=== PATIENT | male | born 1965 | race Caucasian/White ===

== ENCOUNTER 2017-10-02 07:11 | Day surgery (SDC) | payer MEDICAID ==
[~2017-10-02 07:11] MED LIST: Cefuroxime 10 MG/ML SYRINGE EYELF SCH; Lidocaine 1% PF 2 ML SDV INJECT SCH; Pilocarpine 4% Ophth Soln 15 ML Bot EYELF SCH
[2017-10-02] MEDS: Polymyxin B/Trimethoprim 10 ML Bottle EYELF SCH ×3 (07:24→09:44)
[2017-10-02] MEDS: Brimonidine 0.2% Ophth Soln 5 ML Bottle EYELF SCH ×3 (07:29→09:44)
[2017-10-02] MEDS: Phenylephrine 2.5% Ophth Soln 2 ML Bot EYELF SCH ×5 (07:34→09:10)
--- NOTE | 2017-10-02 07:37 | PCM.PREANE ---
Preanesthetic Assessment - Procedure Proposed Procedure: Left Eye Cataract Extraction - Anesthesia/Transfusion/Family Hx Anesthesia History: Prior Anesthesia Without Reaction (patient stated during dental procedure required more anesthesia) Family History of Anesthesia Reaction: No Transfusion History: No Prior Transfusion(s) Intubation History: Unknown - Review of Systems General: No Symptoms Pulmonary: Other (asthma, no inhaler use ) Cardiovascular: No Symptoms, Other (dextrocardia per patient) Gastrointestinal: No Symptoms Neurological: No Symptoms Other: Reports: None, Thyroid Problems (historicially with medication, no issues currently per patient ) - Physical Assessment NPO Status Date: 10/01/17 NPO Status Time: 22:30 ASA Class: 2 Mental Status: Alert & Oriented x3 Airway Class: Mallampati = 1 Dentition: Reports: Missing Tooth/Teeth (mutliple missing, patient states all are eventually going to be pulled ), Caries (poor dentition ) ROM/Head Extension: Full Lungs: Clear to Auscultation, Normal Respiratory Effort Cardiovascular: Regular Rate, Regular Rhythm (s1-s2 stronger on right side ) - Allergies Allergies/Adverse Reactions: Allergies Allergy/AdvReac Type Severity Reaction Status Date / Time NSAIDS (Non-Steroidal Allergy Burning Verified 10/01/17 12:57 Anti-Inflamma Penicillins Allergy Anaphylactic Verified 10/01/17 12:57 Shock mycins Allergy Anaphylactic Uncoded 10/01/17 12:57 Shock - Blood Blood Available: No - Acknowledgements Anesthesia Type Planned: MAC Pt an Appropriate Candidate for the Planned Anesthesia: Yes Alternatives and Risks of Anesthesia Discussed w Pt/Guardian: Yes Pt/Guardian Understands and Agrees with Anesthesia Plan: Yes PreAnesthesia Questionnaire HEENT History: Reports: Impaired Vision, Other (See Below) Other HEENT History: decayed teeth Cardiovascular History: Reports: Other (See Below) Other Cardiovascular History: denies diagnosis of syncope, states he has had synopal episodes and vertigo feeling in the past. Respiratory History: Reports: Asthma Gastrointestinal History: Reports: GERD Musculoskeletal History: Reports: Osteoarthritis Other Musculoskeletal History: right knee surgery Neurological History: Reports: Concussion, Seizure Psychiatric History: Reports: Addiction, Anxiety, PTSD - Past Surgical History HEENT Surgical History: Reports: Detached Retina, Eye Surgery, Tonsillectomy Musculoskeletal Surgical History: Reports: Arthroscopic Knee - SUBSTANCE USE Smoking Status *Q: Current Every Day Smoker Tobacco Use Within Last Twelve Months: Cigarettes Second Hand Smoke Exposure: No Recreational Drug Use History: Yes Recreational Drug Type: Reports: Marijuana/Hashish - HOME MEDS Home Medications: Home Meds . [No Known Home Meds] 02/20/16 [History] - CURRENT (IN HOUSE) MEDS Current Meds: Current Medications Brimonidine Tartrate (Alphagan 0.2% Ophth Soln) 0 ml EYELF ASDIRECTED DAVID Stop: 10/02/17 18:00 Last Admin: 10/02/17 07:29 Dose: 1 drop Cefuroxime Sodium (Zinacef) 0 mg EYELF ASDIRECTED DAVID Stop: 10/02/17 18:00 Lidocaine HCl (Xylocaine-Mpf 1%) 10 ml INJECT ASDIRECTED DAVID Stop: 10/02/17 18:00 Phenylephrine HCl (Eran-Synephrine 2.5% Ophth Soln) 0 ml EYELF ASDIRECTED DAVID Stop: 10/02/17 18:00 Pilocarpine HCl (Pilocar 4% Ophth Soln) 0 ml EYELF ASDIRECTED DAVID Stop: 10/02/17 18:00 Polymyxin/Trimethoprim Sulfate (Polytrim Ophth Soln) 0 ml EYELF ASDIRECTED DAVID Stop: 10/02/17 18:00 Last Admin: 10/02/17 07:24 Dose: 1 drop Tetracaine HCl (Tetracaine 0.5% Steri-Unit Yari) 0 ml EYELF ASDIRECTED DAVID Stop: 10/02/17 18:00 Tropicamide (Mydriacyl 1% Ophth Soln) 0 ml EYELF ASDIRECTED DAVID Stop: 10/02/17 18:00
[2017-10-02] MEDS ORDERED: Lidocaine 1%/Sod Bicarbonate in NS 8.4% 1 ML Syringe IDERM PRN (07:45)
[2017-10-02] MEDS ORDERED: Lactated Ringers 1,000 ML IV SCH (07:45)
[2017-10-02] MEDS ORDERED: Sodium Chloride 0.9% 10 ML Syringe FLUSH PRN (07:45)
[2017-10-02] MEDS: Tetracaine HCl/PF 0.5% 4 ML Bottle EYELF SCH ×2 (08:21→09:23)
[2017-10-02] MEDS ORDERED: Midazolam 1 MG/ML 2 ML SDV ONE ×3 (09:18→09:50)
--- NOTE | 2017-10-02 09:52 | PCM48HPAN ---
Post Anesthesia Note - EVALUATION WITHIN 48HRS OF ANESTHETIC Vital Signs in Normal Range: Yes Patient Participated in Evaluation: Yes Respiratory Function Stable: Yes Airway Patent: Yes Cardiovascular Function Stable: Yes Hydration Status Stable: Yes Pain Control Satisfactory: Yes Nausea and Vomiting Control Satisfactory: Yes Mental Status Recovered: Yes Pulse Rate: 62 SaO2: 99 Resp Rate: 20 Temperature: 36.6 C Blood Pressure: 109/79 Pulse Rate: 62
[2017-10-02 10:12] VITALS: BP 115/90
== END 2017-10-02 10:26 | disposition home or self-care (01) ==
LOC: JD.SDS 07:11
PROVIDERS: ATTEND Ophthalmology
DX: H25.89 Other age-related cataract (principal); H25.811 Combined forms of age-related cataract, right eye; H31.092 Other chorioretinal scars, left eye; M19.90 Unspecified osteoarthritis, unspecified site; E07.9 Disorder of thyroid, unspecified; J45.909 Unspecified asthma, uncomplicated; K21.9 Gastro-esophageal reflux disease without esophagitis; F17.210 Nicotine dependence, cigarettes, uncomplicated; Z90.49 Acquired absence of other specified parts of digestive tract; Z98.890 Other specified postprocedural states; Z79.899 Other long term (current) drug therapy; Z88.8 Allergy status to other drugs, medicaments and biological substances; Z88.0 Allergy status to penicillin
CPT/HCPCS: 66984; C1780; J2250; J7120; A9270-GY

== ENCOUNTER 2017-10-27 18:54 | Emergency (ER) | payer MEDICAID ==
[2017-10-27 19:16] VITALS: BP 120/81
--- NOTE | 2017-10-27 20:38 | EDM.PDOC ---
ED HPI GENERAL MEDICAL PROBLEM - General Chief Complaint: Headache Stated Complaint: HEADACHE/BLURRED VISION Time Seen by Provider: 10/27/17 20:14 Source of Information: Reports: Patient History Limitations: Reports: No Limitations - History of Present Illness INITIAL COMMENTS - FREE TEXT/NARRATIVE: Patient is a 52-year-old male who presents to the ED complaining of generalized headache that is sharp in nature with waxing waning in intensity. Patient states it has been present for the past 24 hours. He's been utilizing Tylenol approximately 2000 mg every 6 hours with no relief. States normally headaches are brought on by stress. He does have a history of migraines. States this headache is different. States he took his dog outside to use the bathroom. Upon going back inside his residence he felt like a seizure was coming come on and went to the couch. Patient laid down on the and had a full grand mal seizure lasting for only a few seconds. Patient did not bite his tongue nor was there any incontinence to urine and stool. He is supposed to be on anti-seizure medications. Has chosen not to be on these meds. He does utilize marijuana on a infrequent basis. In addition has a history of cataract surgery to the left eye recently. He has not followed up with the people manager and notes he still has some blurred vision to the left eye. He will not followup with opthomalogist since this was a traumatic experience. Denies any recent trauma to his head, fever, ear discomfort, nausea/ vomiting, chest pain, sob, abdominal pain, numbness or tingling to extremities, and or focal neurological deficits. Patient does smoke a half pack per day. Denies alcohol use. He is on no medications and has no additional past medical history. Headache Pain Score (Numeric/FACES): 9 - Related Data Allergies Allergy/AdvReac Type Severity Reaction Status Date / Time NSAIDS (Non-Steroidal Allergy Burning Verified 10/27/17 19:16 Anti-Inflamma Penicillins Allergy Anaphylactic Verified 10/27/17 19:16 Shock mycins Allergy Anaphylactic Uncoded 10/27/17 19:16 Shock Home Meds: Home Meds . [No Known Home Meds] 02/20/16 [History] Past Medical History HEENT History: Reports: Impaired Vision, Other (See Below) Other HEENT History: decayed teeth Cardiovascular History: Reports: Other (See Below) Other Cardiovascular History: denies diagnosis of syncope, states he has had synopal episodes and vertigo feeling in the past. Respiratory History: Reports: Asthma Gastrointestinal History: Reports: GERD Musculoskeletal History: Reports: Osteoarthritis Other Musculoskeletal History: right knee surgery Neurological History: Reports: Concussion, Seizure Psychiatric History: Reports: Addiction, Anxiety, PTSD - Past Surgical History HEENT Surgical History: Reports: Detached Retina, Eye Surgery, Tonsillectomy Musculoskeletal Surgical History: Reports: Arthroscopic Knee Social & Family History - Family History Cardiac: Reports: [place] Oncologic: Reports: Lung - Tobacco Use Smoking Status *Q: Current Every Day Smoker Years of Tobacco use: 30 Packs/Tins Daily: 0 Used Tobacco, but Quit: No Second Hand Smoke Exposure: No - Caffeine Use Caffeine Use: Reports: Coffee Other Caffeine Use: unknown - Recreational Drug Use Recreational Drug Use: No Drug Use in Last 12 Months: Yes Recreational Drug Type: Reports: Marijuana/Hashish Recreational Drug Use Frequency: Rarely - Living Situation & Occupation Living situation: Reports: with Significant Other, with Family Occupation: Employed ED ROS GENERAL - Review of Systems Review Of Systems: ROS reveals no pertinent complaints other than HPI. - Physical Exam Exam: See Below Exam Limited By: No Limitations General Appearance: Alert, WD/WN, No Apparent Distress Eye Exam: Bilateral Eye: EOMI, Nystagmus (none noted. ), Other (Both pupils are reactive to light. Left pupil 2 mm and the right is approximately 5. Patient recently had cataract surgery on the left and has blurred vision. He has not followed up with the people manager.) Ears: Hearing Grossly Normal Nose: Normal Inspection Throat/Mouth: Normal Voice, No Airway Compromise. No: Normal Teeth, Evidence of Tongue Biting Head Exam: Atraumatic, Normocephalic. No: Scalp Lacerations, Scalp Swelling, Scalp Abrasions, Scalp Ecchymosis, Scalp Hematoma, Scalp Tenderness, Facial Abrasions, Facial Ecchymosis, Facial Lacerations, Facial Swelling, Facial Tenderness, Sinus Tenderness Neck: Normal Inspection, Supple, Non-Tender, Full Range of Motion Respiratory/Chest: No Respiratory Distress, Lungs Clear, Normal Breath Sounds, No Accessory Muscle Use, Chest Non-Tender Cardiovascular: Normal Peripheral Pulses, Regular Rate, Rhythm, No Murmur GI/Abdominal: Normal Bowel Sounds, Soft, Non-Tender, No Organomegaly, No Distention Neuro Exam (Abbreviated): Alert, Oriented, CN II-XII Intact, Normal Cognition, Normal Gait, No Motor/Sensory Deficits, Other (No facial droop, slurred speech, weakness to the upper or lower extremities. Cerebellar function intact including : Finger-nose, rapid alternating movements, and [id number].) Back Exam: Normal Inspection Extremities: Normal Inspection, Normal Range of Motion, Non-Tender, No Pedal Edema, Normal Capillary Refill Psychiatric: Normal Affect, Normal Mood Skin Exam: Warm, Dry, Intact, Normal Color, No Rash Course - Vital Signs Last Recorded V/S: Last Vital Signs Temp 98.4 F 10/27/17 19:12 Pulse 60 10/27/17 19:12 Resp 18 10/27/17 19:12 BP 120/81 10/27/17 19:12 Pulse Ox 100 10/27/17 19:12 - Orders/Labs/Meds Orders: Active Orders 24 hr Category Date Time Status EKG 12 Lead [EKG Documentation Completion] [RC] STAT Care 10/27/17 20:26 Active DRUG SCREEN, URINE [URCHEM] Stat Lab 10/27/17 20:53 Ordered UA W/MICROSCOPIC [URIN] Stat Lab 10/27/17 20:53 Ordered Labs: Laboratory Tests 10/27/17 10/27/17 10/27/17 Range/Units 20:30 20:30 20:53 WBC 6.89 (4.23-9.07) K/mm3 RBC 4.43 L (4.63-6.08) M/mm3 Hgb 13.7 (13.7-17.5) gm/L Hct 40.9 (40.1-51.0) % MCV 92.3 H (79.0-92.2) fl MCH 30.9 (25.7-32.2) pg MCHC 33.5 (32.2-35.5) g/dl RDW Std Deviation 41.2 (35.1-43.9) fL Plt Count 284 (163-337) K/mm3 MPV 8.7 L (9.4-12.3) fl Neut % (Auto) 57.1 (34.0-67.9) % Lymph % (Auto) 31.6 (21.8-53.1) % [place] % (Auto) 7.8 (5.3-12.2) % Eos % (Auto) 2.0 (0.8-7.0) Baso % (Auto) 1.5 H (0.1-1.2) % Neut # (Auto) 3.93 (1.78-5.38) K/mm3 Lymph # (Auto) 2.18 (1.32-3.57) K/mm3 [place]er # (Auto) 0.54 (0.30-0.82) K/mm3 Eos # (Auto) 0.14 (0.04-0.54) K/mm3 Baso # (Auto) 0.10 H (0.01-0.08) K/mm3 Manual Slide Review Normal smear Sodium 140 (136-145) mEq/L Potassium 4.0 (3.5-5.1) mEq/L Chloride 104 (98-107) mEq/L Carbon Dioxide 27 (21-32) mEq/L Anion Gap 13.0 (5-15) BUN 17 (7-18) mg/dL Creatinine 0.9 (0.7-1.3) mg/dL Est Cr Clr Drug Dosing TNP Estimated GFR (MDRD) > 60 (>60) mL/min BUN/Creatinine Ratio 18.9 H (14-18) Glucose 97 (74-106) mg/dL Calcium 8.5 (8.5-10.1) mg/dL Total Bilirubin 0.5 (0.2-1.0) mg/dL AST 8 L (15-37) U/L ALT 15 L (16-63) U/L Alkaline Phosphatase 61 (46-116) U/L Total Protein 6.9 (6.4-8.2) g/dl Albumin 3.7 (3.4-5.0) g/dl Globulin 3.2 gm/dL Albumin/Globulin Ratio 1.2 (1-2) TSH 3rd Generation 3.317 (0.358-3.74) uIU/mL Urine Color Yellow (Yellow) Urine Appearance Clear (Clear) Urine pH 6.0 (5.0-8.0) Ur Specific [place] 1.020 (1.005-1.030) Urine Protein Negative (Negative) Urine Glucose (UA) Negative (Negative) Urine Ketones Negative (Negative) Urine Occult Blood Negative (Negative) Urine Nitrite Negative (Negative) Urine Bilirubin Negative (Negative) Urine Urobilinogen 0.2 (0.2-1.0) Ur Leukocyte Esterase Negative (Negative) Urine RBC 0-5 (0-5) /hpf Urine WBC 5-10 H (0-5) /hpf Ur Epithelial Cells 0-5 (0-5) /hpf Urine Bacteria Few (FEW) /hpf Urine Mucus Not seen (FEW) /hpf Urine Opiates Screen (NEGATIVE) Ur Buprenorphine Scrn (NEGATIVE) Ur Oxycodone Screen (NEGATIVE) Urine Methadone Screen (NEGATIVE) Ur Propoxyphene Screen (NEGATIVE) Ur Barbiturates Screen (NEGATIVE) Ur Tricyclics Screen (NEGATIVE) Ur Phencyclidine Scrn (NEGATIVE) Ur Amphetamine Screen (NEGATIVE) U Methamphetamines Scrn (NEGATIVE) U Benzodiazepines Scrn (NEGATIVE) U Cocaine Metab Screen (NEGATIVE) U Marijuana (THC) Screen (NEGATIVE) 10/27/17 Range/Units 20:53 WBC (4.23-9.07) K/mm3 RBC (4.63-6.08) M/mm3 Hgb (13.7-17.5) gm/L Hct (40.1-51.0) % MCV (79.0-92.2) fl MCH (25.7-32.2) pg MCHC (32.2-35.5) g/dl RDW Std Deviation (35.1-43.9) fL Plt Count (163-337) K/mm3 MPV (9.4-12.3) fl Neut % (Auto) (34.0-67.9) % Lymph % (Auto) (21.8-53.1) % [place] % (Auto) (5.3-12.2) % Eos % (Auto) (0.8-7.0) Baso % (Auto) (0.1-1.2) % Neut # (Auto) (1.78-5.38) K/mm3 Lymph # (Auto) (1.32-3.57) K/mm3 [place] # (Auto) (0.30-0.82) K/mm3 Eos # (Auto) (0.04-0.54) K/mm3 Baso # (Auto) (0.01-0.08) K/mm3 Manual Slide Review Sodium (136-145) mEq/L Potassium (3.5-5.1) mEq/L Chloride (98-107) mEq/L Carbon Dioxide (21-32) mEq/L Anion Gap (5-15) BUN (7-18) mg/dL Creatinine (0.7-1.3) mg/dL Est Cr Clr Drug Dosing Estimated GFR (MDRD) (>60) mL/min BUN/Creatinine Ratio (14-18) Glucose (74-106) mg/dL Calcium (8.5-10.1) mg/dL Total Bilirubin (0.2-1.0) mg/dL AST (15-37) U/L ALT (16-63) U/L Alkaline Phosphatase (46-116) U/L Total Protein (6.4-8.2) g/dl Albumin (3.4-5.0) g/dl Globulin gm/dL Albumin/Globulin Ratio (1-2) TSH 3rd Generation (0.358-3.74) uIU/mL Urine Color (Yellow) Urine Appearance (Clear) Urine pH (5.0-8.0) Ur Specific [place] (1.005-1.030) Urine Protein (Negative) Urine Glucose (UA) (Negative) Urine Ketones (Negative) Urine Occult Blood (Negative) Urine Nitrite (Negative) Urine Bilirubin (Negative) Urine Urobilinogen (0.2-1.0) Ur Leukocyte Esterase (Negative) Urine RBC (0-5) /hpf Urine WBC (0-5) /hpf Ur Epithelial Cells (0-5) /hpf Urine Bacteria (FEW) /hpf Urine Mucus (FEW) /hpf Urine Opiates Screen Negative (NEGATIVE) Ur Buprenorphine Scrn Negative (NEGATIVE) Ur Oxycodone Screen Negative (NEGATIVE) Urine Methadone Screen Negative (NEGATIVE) Ur Propoxyphene Screen Negative (NEGATIVE) Ur Barbiturates Screen Negative (NEGATIVE) Ur Tricyclics Screen Negative (NEGATIVE) Ur Phencyclidine Scrn Negative (NEGATIVE) Ur Amphetamine Screen Negative (NEGATIVE) U Methamphetamines Scrn Negative (NEGATIVE) U Benzodiazepines Scrn Negative (NEGATIVE) U Cocaine Metab Screen Negative (NEGATIVE) U Marijuana (THC) Screen Presumptive positive H (NEGATIVE) Meds: Medications Discontinued Medications Generic Name Dose Route Start Last Admin Trade Name Freq PRN Reason Stop Dose Admin Diphenhydramine HCl 50 mg 10/27/17 21:11 10/27/17 21:20 Benadryl IM 10/27/17 21:12 50 mg ONETIME ONE Administration Haloperidol Lactate 7 mg 10/27/17 21:11 10/27/17 21:17 Haldol IM 10/27/17 21:12 7 mg ONETIME ONE Administration - Re-Assessments/Exams Free Text/Narrative Re-Assessment/Exam: Patient has a history of seizures and also migraine headaches. States the headache currently experiencing is different. It is not described as worse headache of his life. In addition states seizures is usually brought on by stress. He does complain of some mild generalized fatigue since having a seizure. He is on no medications for seizure. There's been no recent sick exposures. EKG sinus bradycardia rate of [address] changes noted. Initial lab studies will include CBC, chem 14, urine drug tox, TSH, UA, head CT without contrast, and EKG. CT head impression: Findings which are felt to be incidental as noted above. Nothing acute is appreciated on noncontrast head CT study. 10/27/17 21:47 Labs reviewed: CBC essentially normal. Chemistry was essentially normal. UA positive for urine wbc's 5-10. He has no urinary symptoms. Urine drug tox positive for marijuana. TSH WNL. Reassessment, headache is decreasing. He is ready to be discharged home. Discharged instructions as documented. Departure - Departure Time of Disposition: 21:57 Disposition: Home, Self-Care 01 Condition: Good Clinical Impression: Seizure, Marijuana abuse Headache Qualifiers: Headache type: unspecified Headache chronicity pattern: acute headache Intractability: not intractable Qualified Code(s): R51 - Headache - Discharge Information Instructions: General Headache Without Cause Referrals: Jason Romero Jr, MD [Primary Care Provider] - Forms: ED Department Discharge Additional Instructions: No driving this evening since receiving sedative medications. Go home and find a dark room to sleep with no distractions. Do not exceed 3000 mgs of tylenol in 24hrs. See your PCP and neurologists to discuss therapies for headaches and seizures. Return to the E.D. if you develop any new or worsening symptoms. - My Orders Last 24 Hours: My Active Orders 10/27/17 20:26 EKG 12 Lead [EKG Documentation Completion] [RC] STAT 10/27/17 20:53 DRUG SCREEN, URINE [URCHEM] Stat UA W/MICROSCOPIC [URIN] Stat - Assessment/Plan Last 24 Hours: My Active Orders 10/27/17 20:26 EKG 12 Lead [EKG Documentation Completion] [RC] STAT 10/27/17 20:53 DRUG SCREEN, URINE [URCHEM] Stat UA W/MICROSCOPIC [URIN] Stat
[2017-10-27] MEDS ORDERED: Haloperidol Lactate 5 MG/ML SDV IM ONE (21:11)
[2017-10-27] MEDS ORDERED: diphenhydrAMINE 50 MG/ML SDV IM ONE (21:11)
--- NOTE | 2017-10-27 21:29 | CT ---
Head CT Technique: Multiple axial sections through the brain were obtained. Intravenous contrast was not utilized. Comparison: Prior head CT study of 12/04/15. Findings: Ventricles along with basal cisterns and sulci over the convexities are within normal limits. Findings within the left globe appears stable from previous exam and is felt to be due to previous surgery. No abnormal parenchymal densities are seen. No evidence of intracranial hemorrhage. No midline shift or mass effect is seen. Bone window settings were reviewed which shows no acute calvarial abnormality. Metallic density is seen within the posterior left side of the scalp which is stable from previous exam. Visualized sinuses are clear. Impression: 1. Findings which are felt to be incidental as noted above. Nothing acute is appreciated on noncontrast head CT study. Diagnostic code #2
== END 2017-10-27 22:05 | disposition home or self-care (01) ==
LOC: JD.ED 18:54
DX: G40.409 Other generalized epilepsy and epileptic syndromes, not intractable, without status epilepticus (principal); F12.10 Cannabis abuse, uncomplicated; F17.210 Nicotine dependence, cigarettes, uncomplicated; Z88.0 Allergy status to penicillin; Z88.8 Allergy status to other drugs, medicaments and biological substances
CPT/HCPCS: 36415; 70450; 80053; 80306; 81001; 84443; 85025; 93005; 96372; 99284; J1200; J1630

== ENCOUNTER 2017-10-28 17:48 | Emergency (ER) | payer MEDICAID ==
[2017-10-28 17:56] VITALS: BP 131/94
[2017-10-28] MEDS ORDERED: Famotidine 20 MG/2 ML SDV IVPUSH ONE (17:57)
[2017-10-28] MEDS ORDERED: methylPREDNISolone Sodium Succinate 125 MG/2 ML SDV IVPUSH ONE (17:57)
[2017-10-28] MEDS ORDERED: diphenhydrAMINE 50 MG/ML SDV IVPUSH ONE (17:57)
--- NOTE | 2017-10-28 17:58 | EDM.PDOC ---
ED HPI GENERAL MEDICAL PROBLEM - General Chief Complaint: Allergic Reaction Stated Complaint: SWOLLEN TONGUE/CANT CONTROL FACE MUSCLES Time Seen by Provider: 10/28/17 17:50 Source of Information: Reports: Patient, Family () History Limitations: Reports: No Limitations - History of Present Illness INITIAL COMMENTS - FREE TEXT/NARRATIVE: 52-year-old male presents to the ED with acute onset of difficulty talking due to tongue swelling and feeling like there is marked swelling in the back of his throat and difficulty breathing. This occurred suddenly while at home playing with his children. He can't think of anything per se that he would've developed an allergic reaction to but clinically it is most likely a food stuff something he ate within the last hour. He had no audible wheezing. He had some mild erythema of the chest and upper back. No hives. They live in [place] which is 10 miles away and had to speak to the hospital to get immediate care. He has known allergy to NSAIDs and penicillins and other drugs and hand and mycins. He has had anaphylactic reaction in the past. He is also allergic to bee stings. He was able to get 50 mg of Benadryl down at home prior to leaving [place]. Onset: Today Onset Date: 10/28/17 Onset Time: 17:30 Duration: Minutes: Location: Reports: Neck (Feeling of throat closure and tongue swelling.) Quality: Reports: Other (Feeling of throat closure tongue swelling and difficulty getting) Severity: Severe (even his saliva down.) Improves with: Reports: None Worsens with: Reports: None Context: Reports: Other (Acute allergic reaction likely to a food stuff.). Denies: Activity, Exercise, Lifting, Sick Contact, Trauma Associated Symptoms: Reports: Shortness of Breath, Weakness. Denies: Confusion , Chest Pain, Cough, cough w sputum, Diaphoresis, Fever/Chills, Headaches, Loss of Appetite, Malaise, Nausea/Vomiting, Rash, Seizure, Syncope Treatments HOUSING ASSISTANT: Reports: Other (see below) (Did take 50 mg of Benadryl at home.) - Related Data Allergies Allergy/AdvReac Type Severity Reaction Status Date / Time NSAIDS (Non-Steroidal Allergy Burning Verified 10/27/17 19:16 Anti-Inflamma Penicillins Allergy Anaphylactic Verified 10/27/17 19:16 Shock mycins Allergy Anaphylactic Uncoded 10/27/17 19:16 Shock Home Meds: Home Meds EPINEPHrine [Epipen 2-Chilo] 0.3 mg IJ ASDIRECTED #2 pen 10/28/17 [Rx] Past Medical History HEENT History: Reports: Impaired Vision, Other (See Below) Other HEENT History: decayed teeth Cardiovascular History: Reports: Other (See Below) Other Cardiovascular History: denies diagnosis of syncope, states he has had synopal episodes and vertigo feeling in the past. Respiratory History: Reports: Asthma Gastrointestinal History: Reports: GERD Musculoskeletal History: Reports: Osteoarthritis Other Musculoskeletal History: right knee surgery Neurological History: Reports: Concussion, Seizure Psychiatric History: Reports: Addiction, Anxiety, PTSD - Past Surgical History HEENT Surgical History: Reports: Detached Retina, Eye Surgery, Tonsillectomy Musculoskeletal Surgical History: Reports: Arthroscopic Knee Social & Family History - Family History Cardiac: Reports: [place] Oncologic: Reports: Lung - Tobacco Use Smoking Status *Q: Current Every Day Smoker Years of Tobacco use: 30 Packs/Tins Daily: 0 Used Tobacco, but Quit: No Second Hand Smoke Exposure: No - Caffeine Use Caffeine Use: Reports: Coffee Other Caffeine Use: unknown - Recreational Drug Use Recreational Drug Use: No Drug Use in Last 12 Months: Yes Recreational Drug Type: Reports: Marijuana/Hashish Recreational Drug Use Frequency: Rarely - Living Situation & Occupation Living situation: Reports: with Significant Other, with Family Occupation: Employed ED ROS ALLERGIC REACTION - Review of Systems Review Of Systems: See Below Constitutional: Denies: Fever, Chills, Malaise, Weakness, Fatigue, Decreased Appetite, Weight Loss HEENT: Reports: Throat Swelling, Other (Tongue swelling) Respiratory: Reports: Shortness of Breath. Denies: Wheezing, Pleuritic Chest Pain, Cough, Sputum Cardiovascular: Reports: No Symptoms Endocrine: Reports: No Symptoms GI/Abdominal: Reports: Nausea : Reports: No Symptoms Musculoskeletal: Reports: No Symptoms Skin: Reports: No Symptoms Neurological: Reports: No Symptoms Psychiatric: Reports: No Symptoms Hematologic/Lymphatic: Reports: No Symptoms Immunologic: Reports: No Symptoms ED EXAM GENERAL NO PERIP PULSE - Physical Exam Exam: See Below Exam Limited By: Physical Impairment (Difficult to understand due to swelling of his tongue.) General Appearance: Alert, WD/WN, Severe Distress (Very anxious.) Eye Exam: Bilateral Eye: Normal Inspection (Nose periorbital swelling or conjunctival edema.) Ears: Normal TMs Nose: Other (Feels clogged up nasally with no nasal drip or discharge.) Throat/Mouth: Other (Patient does have swelling of his tongue and minimally floor of the mouth and uvula is mildly swollen difficult to appreciate any obvious swelling of the posterior oropharynx which is erythematous from cigarette smoking.) Head: Atraumatic, Normocephalic Neck: Normal Inspection, Supple, Non-Tender, Full Range of Motion. No: Lymphadenopathy (L), Lymphadenopathy (R) Respiratory/Chest: No Respiratory Distress, Lungs Clear, Normal Breath Sounds, No Accessory Muscle Use, Chest Non-Tender. No: Rales, Rhonchi, Wheezing Cardiovascular: Normal Peripheral Pulses, Regular Rate, Rhythm, No Edema, No Gallop, No Murmur GI/Abdominal: Normal Bowel Sounds, Soft, Non-Tender, No Organomegaly Extremities: Normal Inspection, Normal Range of Motion, Non-Tender, No Pedal Edema, Normal Capillary Refill, Pedal Edema Neurological: Alert, Oriented, CN II-XII Intact, Normal Cognition, Normal Gait Psychiatric: Normal Affect, Normal Mood Skin Exam: Warm, Dry, Intact, Normal Color, Other (Mild erythema upper chest and back. No hives) Course - Vital Signs Last Recorded V/S: Last Vital Signs Temp 36.1 C 10/28/17 17:52 Pulse 90 10/28/17 17:52 Resp 18 10/28/17 17:52 BP 131/94 H 10/28/17 17:52 Pulse Ox 100 10/28/17 17:52 - Orders/Labs/Meds Orders: Active Orders 24 hr Category Date Time Status Sodium Chloride 0.9% [Normal Saline] 1,000 ml Med 10/28/17 18:00 Active IV ASDIRECTED Medication Orders Sodium Chloride (Normal Saline) 1,000 mls @ 500 mls/hr IV ASDIRECTED DAVID Last Admin: 10/28/17 18:13 Dose: 500 mls/hr Meds: Medications Generic Name Dose Route Start Last Admin Trade Name Freq PRN Reason Stop Dose Admin Sodium Chloride 1,000 mls @ 500 mls/hr 10/28/17 18:00 10/28/17 18:13 Normal Saline IV 500 mls/hr ASDIRECTED DAVID Administration Discontinued Medications Generic Name Dose Route Start Last Admin Trade Name Freq PRN Reason Stop Dose Admin Diphenhydramine HCl 50 mg 10/28/17 17:57 10/28/17 18:07 Benadryl IVPUSH 10/28/17 17:58 50 mg ONETIME ONE Administration Famotidine 20 mg 10/28/17 17:57 10/28/17 18:04 Pepcid IVPUSH 10/28/17 17:58 20 mg ONETIME ONE Administration Methylprednisolone Sodium Succinate 125 mg 10/28/17 17:57 10/28/17 18:05 Solu-Medrol IVPUSH 10/28/17 17:58 125 mg ONETIME ONE Administration Ondansetron HCl 4 mg 10/28/17 18:08 10/28/17 18:15 Zofran IVPUSH 10/28/17 18:09 4 mg ONETIME ONE Administration - Radiology Interpretation Free Text/Narrative:: 52-year-old male presents the ED with an apparent acute allergic reaction likely to something he's eaten within the last hour. This is is uncertain. He developed acute onset of swelling of his tongue with impaired speech feeling of throat closure and inability to swallow his saliva. [place] nasally congested as well. Did not feel any pressure in his chest although he did feel some shortness of breath he had no wheezing. He did not develop any hives but had some erythema of the skin anterior chest and upper back. There was some mild swelling of the floor of his mouth as well. He received immediate treatment with intravenous Benadryl 50 mg Pepcid 20 mg IV and Solu-Medrol 125 mg IV. Approximately 10 minutes later he started to feel very nauseated and did in fact vomit which may be a part of the allergic response or mother natures response to get rid of the allergen. He was given Zofran 4 mg IV for nausea relief. - Re-Assessments/Exams Free Text/Narrative Re-Assessment/Exam: 10/28/17 18:35: Patient feels markedly improved with return of normal voice and normal speech pattern and swelling of his tongue is gone down as has the swelling of his uvula and the floor of his mouth. He will therefore be discharged to home. I did write a prescription for EpiPen adult to be utilized in case he is far enough away from an emergency room that he can't get immediate medical care. He is to keep Benadryl 50 mg in the house at all times. He also is allergic to bees and advised tach course take his EpiPen when he has the potential to be exposed to a bee sting when outside. He interestingly has had anaphylactic reaction to some antibiotics with mycins and penicillins. It's unclear whether he could've accidentally ingested any of these substances. It appears most likely and something ingested in terms of knots fish oils etc. Departure - Departure Time of Disposition: 18:38 Disposition: Home, Self-Care 01 Condition: Fair Clinical Impression: Acute allergic reaction Qualifiers: Encounter type: initial encounter Qualified Code(s): T78.40XA - Allergy, unspecified, initial encounter - Discharge Information Prescriptions: EPINEPHrine [Epipen 2-Chilo] 0.3 mg IJ ASDIRECTED #2 pen Referrals: Jason Romero Jr, MD [Primary Care Provider] - Forms: ED Department Discharge Additional Instructions: Evaluation in the emergency room today in regards to acute allergic reaction with swelling of the tongue roof of the mouth and back of the throat kinking it difficult to swallow without the development of hives or trouble breathing. This most likely was an allergic reaction to something he weighed within the hour out of development of symptoms. It can be many things such as herbs and spices in various products and/or but not family and/or fish oils etc. You are treated with intravenous Benadryl 50 mg , Pepcid 20 mg IV and Solu-Medrol 125 mg IV for acute allergic reaction relief. You also were treated with Zofran 4 mg IV for nausea relief. I would suggest having Benadryl around and taking 50 mg immediately if you develop any similar symptoms. I also did write a prescription for EpiPen use which should only be used in case of severe emergency and severe allergic reaction where you cannot get your breath due to throat swelling or wheezing or development of severe generalized hives. This is particularly useful if you are more than 20 minutes away from an emergency room. May continue to eat and drink per normal tonight. Of course return to the hospital if you develop any further trouble swallowing or breathing. This is felt to be highly unlikely to occur due to the medications you have received. - My Orders Last 24 Hours: My Active Orders 10/28/17 18:00 Sodium Chloride 0.9% [Normal Saline] 1,000 ml IV ASDIRECTED - Assessment/Plan Last 24 Hours: My Active Orders 10/28/17 18:00 Sodium Chloride 0.9% [Normal Saline] 1,000 ml IV ASDIRECTED
[2017-10-28] MEDS ORDERED: Sodium Chloride 0.9% 1,000 ML IV SCH (18:00)
[2017-10-28] MEDS ORDERED: Ondansetron 4 MG/2 ML SDV IVPUSH ONE (18:08)
== END 2017-10-28 18:45 | disposition home or self-care (01) ==
LOC: JD.ED 17:48
DX: T78.40XA Allergy, unspecified, initial encounter (principal); R06.00 Dyspnea, unspecified; K21.9 Gastro-esophageal reflux disease without esophagitis; F17.210 Nicotine dependence, cigarettes, uncomplicated; Z88.0 Allergy status to penicillin; Z88.8 Allergy status to other drugs, medicaments and biological substances
CPT/HCPCS: 96374; 96375; 99283; J1200; J2405; J2930; J7040; 99284

== ENCOUNTER 2020-06-22 07:33 | Emergency (ER) | payer MEDICAID ==
[2020-06-22 07:54] VITALS: BP 144/98; PULSE 59
[2020-06-22] MEDS ORDERED: HYDROmorphone 1 MG/ML Syringe IVPUSH ONE (08:04)
[2020-06-22] MEDS ORDERED: Ondansetron 4 MG/2 ML SDV IVPUSH ONE (08:04)
[2020-06-22] MEDS ORDERED: Sodium Chloride 0.9% 1,000 ML IV SCH (08:15)
--- NOTE | 2020-06-22 08:26 | EDM.PDOC ---
<Romie Escudero - Last Filed: 06/22/20 10:21> ED HPI GENERAL MEDICAL PROBLEM - General Chief Complaint: Abdominal Pain Stated Complaint: [facility] Time Seen by Provider: 06/22/20 08:10 - Related Data Allergies Allergy/AdvReac Type Severity Reaction Status Date / Time NSAIDS (Non-Steroidal Allergy Burning Verified 06/22/20 07:47 Anti-Inflamma Penicillins Allergy Anaphylactic Verified 06/22/20 07:47 Shock mycins Allergy Anaphylactic Uncoded 10/27/17 19:16 Shock Home Meds: Home Meds EPINEPHrine [Epipen 2-Chilo] 0.3 mg IJ ASDIRECTED #2 pen 10/28/17 [Rx] ALPRAZolam [Xanax] 2 mg PO BID 06/22/20 [History] oxyCODONE HCl [Oxycodone HCL] 1 mg PO TID 06/22/20 [History] Course - Re-Assessments/Exams Free Text/Narrative Re-Assessment/Exam: 06/22/20 10:21 I have also seen and evaluated patient. I agree with hx, exam and discharge plan as documented. Departure - Departure Disposition: Home, Self-Care 01 Clinical Impression: Renal colic on right side, Kidney stone - Discharge Information Instructions: Renal Colic, [id number], Kidney Stones, [id number] Referrals: PCP,None [Primary Care Provider] - Forms: ED Department Discharge Additional Instructions: May discharge home. Increase p.o. fluid intake. Resume home medications. Should your condition worsen or change follow-up with your primary care provider or return to the emergency department. <Amy Calixto M - Last Filed: 06/22/20 10:22> ED HPI GENERAL MEDICAL PROBLEM - General Source of Information: Reports: Patient History Limitations: Reports: No Limitations - History of Present Illness INITIAL COMMENTS - FREE TEXT/NARRATIVE: 54-year-old male presents the emergency department with acute onset of abdominal pain nausea and vomiting that started about 1 AM this morning. He states he felt the need to have a bowel movement but only a small amount of stool was noted and then developed generalized abdominal pain and vomited twice. He states he went back to bed woke up about an hour later feeling the need to have a bowel movement, but was unable and vomited once more and continued to have nausea. He then went to bed and woke up a third time and vomited once more. He did not notice any jazmyne red blood in his stools. He states that they looked normal colored. He states he ate about 430/5:00 yesterday evening and had what he normally eats but could not tell me what that was also states that he smacked off and on yesterday. He does take oxycodone 3 times daily for some knee pain and Xanax. These are his only medications. He does not take any stool softeners. He does not recall having any abdominal surgeries in the past, however he states his mother told him he had his appendix out however he does not have any abdominal scars. He did have the chills last evening and felt feverish however he did not check his temperature. He does smoke marijuana daily as well as cigarettes. Denies any other recreational drug use. And he reports being a social drinker having 1 alcoholic beverage last evening. Onset: Sudden Onset Date: 06/22/20 Onset Time: 01:00 Location: Reports: Abdomen Quality: Reports: Sharp, Stabbing Severity: Severe Improves with: Reports: None Worsens with: Reports: Movement Associated Symptoms: Reports: Nausea/Vomiting Lower Abdomen Pain Score (Numeric/FACES): 10 Past Medical History HEENT History: Reports: Impaired Vision, Other (See Below) Other HEENT History: decayed teeth Cardiovascular History: Reports: Other (See Below) Other Cardiovascular History: denies diagnosis of syncope, states he has had synopal episodes and vertigo feeling in the past. Respiratory History: Reports: Asthma Gastrointestinal History: Reports: GERD Genitourinary History: Reports: None Musculoskeletal History: Reports: Osteoarthritis Other Musculoskeletal History: right knee surgery Neurological History: Reports: Concussion, Seizure Psychiatric History: Reports: Addiction, Anxiety, PTSD Endocrine/Metabolic History: Reports: None Hematologic History: Reports: None Immunologic History: Reports: None Oncologic (Cancer) History: Reports: None Dermatologic History: Reports: None - Infectious Disease History Infectious Disease History: Reports: None Other Infectious Disease History: Pt states he doesnt know - Past Surgical History Head Surgeries/Procedures: Reports: None HEENT Surgical History: Reports: Detached Retina, Eye Surgery, Tonsillectomy GI Surgical History: Reports: Appendectomy Other GI Surgeries/Procedures: Pt states he thinks he has had his appendix out but not sure Male Surgical History: Reports: None Musculoskeletal Surgical History: Reports: Arthroscopic Knee Social & Family History - Family History Family Medical History: No Pertinent Family History Cardiac: Reports: IN Oncologic: Reports: Lung - Tobacco Use Tobacco Use Status *Q: Current Every Day Tobacco User Years of Tobacco use: 30 Packs/Tins Daily: 1 - Caffeine Use Caffeine Use: Reports: Coffee Other Caffeine Use: unknown - Recreational Drug Use Recreational Drug Use: Yes Drug Use in Last 12 Months: Yes Recreational Drug Type: Reports: Marijuana/Hashish Recreational Drug Use Frequency: Daily - Living Situation & Occupation Living situation: Reports: with Significant Other, with Family Occupation: Employed ED ROS GENERAL - Review of Systems Review Of Systems: See Below Constitutional: Reports: Fever, Chills HEENT: Reports: No Symptoms Respiratory: Reports: No Symptoms Cardiovascular: Reports: No Symptoms Endocrine: Reports: No Symptoms GI/Abdominal: Reports: Abdominal Pain, Constipation, Nausea, Vomiting. Denies: Black Stool, Bloody Stool, Diarrhea, Melena, Mucous in Stool : Reports: Other (Patient states he has not voided since sometime yesterday afternoon.) Musculoskeletal: Reports: No Symptoms Skin: Reports: No Symptoms Neurological: Reports: No Symptoms Psychiatric: Reports: No Symptoms Hematologic/Lymphatic: Reports: No Symptoms Immunologic: Reports: No Symptoms ED EXAM, GI/ABD - Physical Exam Exam: See Below Exam Limited By: No Limitations General Appearance: Alert, WD/WN, Moderate Distress, Thin Eyes: Right: Normal Appearance (Left eye is opaque), Bilateral: EOMI Nose: Normal Inspection Throat/Mouth: Normal Lips, Normal Voice, Other (Several teeth are missing). No: Normal Teeth Head: Atraumatic, Normocephalic Neck: Normal Inspection, Supple, Full Range of Motion Respiratory/Chest: No Respiratory Distress, Lungs Clear, Normal Breath Sounds, No Accessory Muscle Use, Chest Non-Tender Cardiovascular: Normal Peripheral Pulses, No Edema, Bradycardia GI/Abdominal Exam: Normal Bowel Sounds, Guarding, Tender (right upper quadrant and right lower quadrant) (Male) Exam: Deferred Rectal (Males) Exam: Deferred Back Exam: Full Range of Motion Extremities: Normal Inspection, Normal Range of Motion Neurological: Alert, Oriented, Normal Cognition Psychiatric: Normal Affect, Normal Mood Skin Exam: Warm, Dry, Intact, Normal Color Lymphatic: No Adenopathy Course - Vital Signs Text/Narrative:: CBC, CMP, lipase, CRP, and flat and upright of the abdomen have been ordered on this patient. He is complaining of a significant amount of abdominal pain and is narcotic dependent, so we will give him 4mg zofran and 1mg of Dilaudid and NS 1 liter wide open. Last Recorded V/S: Last Vital Signs Temp 97.5 F 06/22/20 07:51 Pulse 59 L 06/22/20 07:51 Resp 29 H 06/22/20 07:51 BP 144/98 H 06/22/20 07:51 Pulse Ox 100 06/22/20 07:51 - Orders/Labs/Meds Orders: Active Orders 24 hr Category Date Time Status Sodium Chloride 0.9% [Normal Saline] 1,000 ml Med 06/22/20 08:15 Active IV ONETIME Medication Orders Sodium Chloride (Normal Saline) 1,000 mls @ 999 mls/hr IV ONETIME DAVID Last Admin: 06/22/20 08:15 Dose: 999 mls/hr Documented by: HUBER Labs: Laboratory Tests 06/22/20 06/22/20 06/22/20 Range/Units 08:10 08:10 08:10 WBC 11.61 H (4.23-9.07) K/mm3 RBC 4.54 L (4.63-6.08) M/mm3 Hgb 14.8 (13.7-17.5) gm/dl Hct 43.9 (40.1-51.0) % MCV 96.7 H D (79.0-92.2) fl MCH 32.6 H (25.7-32.2) pg MCHC 33.7 (32.2-35.5) g/dl RDW Std Deviation 43.9 (35.1-43.9) fL Plt Count 238 (163-337) K/mm3 MPV 8.8 L (9.4-12.3) fl Neut % (Auto) 80.7 H (34.0-67.9) % Lymph % (Auto) 11.8 L (21.8-53.1) % [place] % (Auto) 6.4 (5.3-12.2) % Eos % (Auto) 0.6 L (0.8-7.0) Baso % (Auto) 0.3 (0.1-1.2) % Neut # (Auto) 9.37 H (1.78-5.38) K/mm3 Lymph # (Auto) 1.37 (1.32-3.57) K/mm3 [place] # (Auto) 0.74 (0.30-0.82) K/mm3 Eos # (Auto) 0.07 (0.04-0.54) K/mm3 Baso # (Auto) 0.04 (0.01-0.08) K/mm3 Manual Slide Review Normal smear Sodium 136 (136-145) mEq/L Potassium 3.5 (3.5-5.1) mEq/L Chloride 100 (98-107) mEq/L Carbon Dioxide 26 (21-32) mEq/L Anion Gap 13.5 (5-15) BUN 16 (7-18) mg/dL Creatinine 1.2 (0.7-1.3) mg/dL Est Cr Clr Drug Dosing 79.04 mL/min Estimated GFR (MDRD) > 60 (>60) mL/min BUN/Creatinine Ratio 13.3 L (14-18) Glucose 130 H (74-106) mg/dL Calcium 9.3 (8.5-10.1) mg/dL Total Bilirubin 0.7 (0.2-1.0) mg/dL AST 13 L (15-37) U/L ALT 11 L (16-63) U/L Alkaline Phosphatase 57 (46-116) U/L C-Reactive Protein 0.4 (<1.0) mg/dL Total Protein 7.0 (6.4-8.2) g/dl Albumin 4.0 (3.4-5.0) g/dl Globulin 3.0 gm/dL Albumin/Globulin Ratio 1.3 (1-2) Lipase 70 L (73-393) U/L Urine Color (Yellow) Urine Appearance (Clear) Urine pH (5.0-8.0) Ur Specific [place] (1.005-1.030) Urine Protein (Negative) Urine Glucose (UA) (Negative) Urine Ketones (Negative) Urine Occult Blood (Negative) Urine Nitrite (Negative) Urine Bilirubin (Negative) Urine Urobilinogen (0.2-1.0) Ur Leukocyte Esterase (Negative) Urine RBC (0-5) /hpf Urine WBC (0-5) /hpf Ur Squamous Epith Cells (0-5) /hpf Urine Bacteria (FEW) /hpf Urine Mucus (FEW) /hpf 06/22/20 Range/Units 09:05 WBC (4.23-9.07) K/mm3 RBC (4.63-6.08) M/mm3 Hgb (13.7-17.5) gm/dl Hct (40.1-51.0) % MCV (79.0-92.2) fl MCH (25.7-32.2) pg MCHC (32.2-35.5) g/dl RDW Std Deviation (35.1-43.9) fL Plt Count (163-337) K/mm3 MPV (9.4-12.3) fl Neut % (Auto) (34.0-67.9) % Lymph % (Auto) (21.8-53.1) % [place] % (Auto) (5.3-12.2) % Eos % (Auto) (0.8-7.0) Baso % (Auto) (0.1-1.2) % Neut # (Auto) (1.78-5.38) K/mm3 Lymph # (Auto) (1.32-3.57) K/mm3 [place] # (Auto) (0.30-0.82) K/mm3 Eos # (Auto) (0.04-0.54) K/mm3 Baso # (Auto) (0.01-0.08) K/mm3 Manual Slide Review Sodium (136-145) mEq/L Potassium (3.5-5.1) mEq/L Chloride (98-107) mEq/L Carbon Dioxide (21-32) mEq/L Anion Gap (5-15) BUN (7-18) mg/dL Creatinine (0.7-1.3) mg/dL Est Cr Clr Drug Dosing mL/min Estimated GFR (MDRD) (>60) mL/min BUN/Creatinine Ratio (14-18) Glucose (74-106) mg/dL Calcium (8.5-10.1) mg/dL Total Bilirubin (0.2-1.0) mg/dL AST (15-37) U/L ALT (16-63) U/L Alkaline Phosphatase (46-116) U/L C-Reactive Protein (<1.0) mg/dL Total Protein (6.4-8.2) g/dl Albumin (3.4-5.0) g/dl Globulin gm/dL Albumin/Globulin Ratio (1-2) Lipase (73-393) U/L Urine Color Dark yellow (Yellow) Urine Appearance Slt cloudy H (Clear) Urine pH 6.0 (5.0-8.0) Ur Specific [place] > or = 1.030 (1.005-1.030) Urine Protein 1+ H (Negative) Urine Glucose (UA) Negative (Negative) Urine Ketones 2+ H (Negative) Urine Occult Blood 2+ H (Negative) Urine Nitrite Negative (Negative) Urine Bilirubin 1+ H (Negative) Urine Urobilinogen 0.2 (0.2-1.0) Ur Leukocyte Esterase Negative (Negative) Urine RBC 20-30 H (0-5) /hpf Urine WBC 5-10 H (0-5) /hpf Ur Squamous Epith Cells 5-10 H (0-5) /hpf Urine Bacteria Moderate H (FEW) /hpf Urine Mucus Many H (FEW) /hpf Meds: Medications Generic Name Dose Route Start Last Admin Trade Name Freirina PRN Reason Stop Dose Admin Sodium Chloride 1,000 mls @ 999 mls/hr 06/22/20 08:15 06/22/20 08:15 Normal Saline IV 999 mls/hr ONETIME DAVID Administration Discontinued Medications Generic Name Dose Route Start Last Admin Trade Name Freq PRN Reason Stop Dose Admin Hydromorphone HCl 1 mg 06/22/20 08:04 06/22/20 08:14 Dilaudid IVPUSH 06/22/20 08:05 1 mg ONETIME ONE Administration Lorazepam 0.5 mg 06/22/20 08:46 06/22/20 08:59 Ativan IVPUSH 06/22/20 08:47 0.5 mg ONETIME ONE Administration Ondansetron HCl 4 mg 06/22/20 08:04 06/22/20 08:13 Zofran IVPUSH 06/22/20 08:05 4 mg ONETIME ONE Administration - Re-Assessments/Exams Free Text/Narrative Re-Assessment/Exam: 06/22/20 08:59 Patient states his pain had decreased from a 9 down to a 6 but not back up to an 8 again. Will order Ativan 0.5 mg IV x1 dose and reevaluate. Upon return from radiology, patient now states that he has right flank pain that has developed. Will order a UA. 06/22/20 09:20 Labs reveal WBC 11.61, neutrophil percentage 80.7, potassium 3.5, AST 13, ALT 11, alk phos 57 C-reactive protein 0.4, lipase 70. I have also ordered a CT of the abdomen to rule out kidney stone. 06/22/20 09:54 Supine and upright views of the abdomen impression per radiologist report: 1. Slightly prominent small bowel gas with the left upper abdomen. Difficult to exclude localized ileus from underlying inflammatory process if patient has correlating symptoms. 2. Other findings believed to be incidental. 06/22/20 10:00 CT of abdomen and pelvis as per radiologist report right kidney shows hydronephrosis as well as a prominent right ureter down to the bladder. No a bnormal calcifications are seen within the ureter. 2 small calcifications are seen on the left side within the bladder measuring 3.4 mm in about 3.7 mm. These presumedly present to stones that have passed as an etiology for the right-sided ureteral dilation. Nonobstructing stones are seen within the right kidney. The right kidney shows evidence of nonobstructing calculi as well as hydronephrosis and dilated ureter down to the bladder. Other findings believed to be incidental as described above. 06/22/20 10:07 Urinalysis reveals urine appearance slightly cloudy, urine protein 1+, urine ketones 2+, urine occult blood 2+, urine bilirubin 1+, nitrite negative, leuk esterase negative, urine RBCs 20-30, urine WBCs 5-10, urine squamous epithelial cells 5-10, urine bacteria moderate, urine mucus many Departure - Departure Time of Disposition: 10:16 Condition: Good Sepsis Event Note (ED) - Evaluation Sepsis Screening Result: No Definite Risk - Focused Exam Vital Signs: Vital Signs Temp Pulse Resp BP Pulse Ox 06/22/20 07:51 97.5 F 59 L 29 H 144/98 H 100
[2020-06-22] MEDS ORDERED: LORazepam 2 MG/ML SDV IVPUSH ONE (08:46)
--- NOTE | 2020-06-22 09:11 | CR ---
Abdomen: Supine and upright views of the abdomen were obtained. Comparison: No prior abdominal imaging is available. Findings: Bowel gas: Several loops of gas-filled small bowel loops are seen within the left upper abdomen. These show no definite dilatation but could represent a mild underlying ileus. Bowel gas pattern is otherwise unremarkable. No free air is appreciated. No abnormal calcifications or soft tissue findings are seen. Bony structures appear within normal limits for the patient's age. Impression: 1. Slightly prominent small bowel gas with the left upper abdomen. Difficult to exclude localized ileus from underlying inflammatory process if patient has correlating symptoms. 2. Other findings believed to be incidental. Diagnostic code #3
--- NOTE | 2020-06-22 09:55 | CT ---
CT abdomen and pelvis Technique: Multiple axial sections were obtained from above the dome of the diaphragm inferiorly through the pubic symphysis. Intravenous and oral contrast not utilized. Study has been performed as a ureteral stone protocol. Reconstructed coronal and axial images were obtained. Findings: Right kidney shows hydronephrosis as well as a prominent right ureter down to the bladder. No abnormal calcifications are seen within the ureter. 2 small calcifications are seen on the left side within the bladder measuring 3.4 mm and about 3.7 mm. These presumably represent 2 stones that have passed as an etiology for the right-sided ureteral dilatation Nonobstructing stones are seen within the right kidney. Left kidney shows no abnormal calcifications. Left kidney shows no ureteral dilatation. Lung bases: Slight increased density within the left lung base most likely due to some minimal atelectasis. Liver and spleen: No discrete abnormality is appreciated. Gallbladder shows no calcified gallstones. Adrenal glands show no nodule. Pancreas: Pancreas shows no discrete abnormality. Aorta, retroperitoneum and mesentery: Aorta shows no aneurysm. No retroperitoneal adenopathy or mesenteric abnormalities are seen. Small fat-containing umbilical hernia is noted. Bowel: Appendix is seen and appears to be normal. No bowel dilatation or bowel wall thickening is appreciated. Pelvis: No pelvic mass or adenopathy is appreciated. Minimal fat containing bilateral inguinal hernias are noted. Osseous: Disc space narrowing and vacuum phenomena is seen at L5-S1. Lesser osteophytes are seen throughout other portions of the lower thoracic and lumbar spine. Impression: 1. Right kidney shows evidence of nonobstructing calculi as well as hydronephrosis and dilated ureter down to the bladder. 2 calcifications are seen within the posterior bladder most likely representing passage of right ureteral stones as the etiology of the dilatation. Please correlate if patient's symptoms are improved. 2. Nonobstructing stones within the right kidney. 3. Other findings believed to be incidental as described above. Diagnostic code #5
== END 2020-06-22 10:39 | disposition home or self-care (01) ==
LOC: JD.ED 07:33
DX: N13.2 Hydronephrosis with renal and ureteral calculous obstruction (principal); F17.210 Nicotine dependence, cigarettes, uncomplicated; J45.909 Unspecified asthma, uncomplicated; F41.9 Anxiety disorder, unspecified; Z79.899 Other long term (current) drug therapy; Z88.8 Allergy status to other drugs, medicaments and biological substances; Z88.0 Allergy status to penicillin; Z88.1 Allergy status to other antibiotic agents
CPT/HCPCS: 36415; 74019; 74176; 80053; 81001; 83690; 85025; 86140; 96374; 96375; 99285; J1170; J2060; J2405; J7030; 99284

== ENCOUNTER 2021-10-22 10:08 | Emergency (ER) | payer MEDICAID ==
[2021-10-22 10:39] VITALS: BP 126/92; PULSE 65
== END 2021-10-22 12:18 | disposition home or self-care (01) ==
LOC: JD.ED 10:08
DX: S16.1XXA Strain of muscle, fascia and tendon at neck level, initial encounter (principal); Z91.030 Bee allergy status; Z88.0 Allergy status to penicillin; Z88.1 Allergy status to other antibiotic agents; Z88.8 Allergy status to other drugs, medicaments and biological substances; Z91.048 Other nonmedicinal substance allergy status; Z72.0 Tobacco use
CPT/HCPCS: 72040; 72040-26; 73030-26-LT; 73030-LT; 99283-25; 99284

== ENCOUNTER 2021-12-19 08:38 | Emergency (ER) | payer MEDICAID ==
[2021-12-19] MEDS ORDERED: Sodium Chloride 0.9% 10 ML Syringe FLUSH PRN (09:03)
[2021-12-19] MEDS ORDERED: Sodium Chloride 0.9% 1,000 ML IV ONE (09:03)
[2021-12-19] MEDS ORDERED: cefTRIAXone 1 GM in Sodium Chloride 0.9% 100 ML IV ONE (09:55)
[2021-12-19 10:27] LABS: ESTIMATED GFR > 60 mL/min (>60)
[2021-12-19 12:03] VITALS: BP 127/79; PULSE 58
== END 2021-12-19 11:58 | disposition home or self-care (01) ==
LOC: JD.ED 08:38 → SUPCPDRO 08:38 → JD.ED 11:58
DX: N39.0 Urinary tract infection, site not specified (principal); R31.0 Gross hematuria; F17.210 Nicotine dependence, cigarettes, uncomplicated; F41.9 Anxiety disorder, unspecified; F43.11 Post-traumatic stress disorder, acute; Z79.899 Other long term (current) drug therapy; Z91.030 Bee allergy status; Z88.0 Allergy status to penicillin; Z88.8 Allergy status to other drugs, medicaments and biological substances; Z91.048 Other nonmedicinal substance allergy status
CPT/HCPCS: 36415; 74176; 80053; 81001; 83735; 85025; 86140; 87086; 87088; 87186; 96365; 99284; J0696; J3490; J7030

== ENCOUNTER 2023-01-19 18:56 | Emergency (ER) | payer MEDICAID ==
[2023-01-19] MEDS ORDERED: Sodium Chloride 0.9% 10 ML Syringe FLUSH PRN (19:27)
[2023-01-19] MEDS ORDERED: Nitroglycerin 0.4 MG Tab.SL SL PRN (19:29)
[2023-01-19 19:33] LABS: BASOPHILS ABSOLUTE AUTO 0.04 K/mm3 (0.01-0.08); BASOPHILS PERCENT AUTO 0.5 % (0.1-1.2); EOSINOPHILS ABSOLUTE AUTO 0.05 K/mm3 (0.04-0.54); EOSINOPHILS PERCENT AUTO 0.6 (0.8-7.0); HEMATOCRIT 41.2 % (40.1-51.0); HEMOGLOBIN 13.6 gm/dl (13.7-17.5); IMMATURE GRAN ABSOLUTE AUTO 0.01 K/mm3 (0.00-0.10); IMMATURE GRAN PERCENT AUTO 0.1 % (<=1.0); LYMPHOCYTES ABSOLUTE AUTO 1.75 K/mm3 (1.32-3.57); LYMPHOCYTES PERCENT AUTO 21.8 % (21.8-53.1); MEAN CORPUSCULAR VOLUME 96.9 fl (79.0-92.2); MEAN PLATELET VOLUME 8.7 fl (9.4-12.3); MONOCYTES PERCENT AUTO 6.2 % (5.3-12.2); NEUTROPHILS ABSOLUTE AUTO 5.67 K/mm3 (1.78-5.38); NEUTROPHILS PERCENT AUTO 70.8 % (34.0-67.9); PLATELET COUNT,PLT 236 K/mm3 (163-337); RED BLOOD CELL COUNT 4.25 M/mm3 (4.63-6.08); WHITE BLOOD CELL COUNT,WBC 8.02 K/mm3 (4.23-9.07)
[2023-01-19 19:55] LABS: INR 0.96; PROTHROMBIN TIME 10.3 SECONDS (9.7-12.0)
[2023-01-19 20:01] LABS: D-DIMER QUANTITATIVE < 0.19 mg/L (0.19-0.50)
[2023-01-19 20:05] LABS: A/G RATIO 1.2 (1-2); ALBUMIN 3.8 g/dl (3.4-5.0); ANION GAP 9.7 (5-15); BILIRUBIN TOTAL 0.4 mg/dL (0.2-1.0); BUN/CREATININE RATIO 10.9 (14-18); CALCIUM 9.1 mg/dL (8.5-10.1); CREATININE 1.1 mg/dL (0.7-1.3); EST CRCL DRUG DOSING (CG) 75.26 mL/min; POTASSIUM,K 3.7 mEq/L (3.5-5.1); PROTEIN TOTAL,TP 6.9 g/dl (6.4-8.2)
== END 2023-01-19 20:55 | disposition home or self-care (01) ==
LOC: JD.ED 18:56
DX: R07.89 Other chest pain (principal); J45.909 Unspecified asthma, uncomplicated; Z86.16 Personal history of COVID-19; Z91.030 Bee allergy status; Z88.1 Allergy status to other antibiotic agents; Z88.8 Allergy status to other drugs, medicaments and biological substances; Z88.0 Allergy status to penicillin; Z91.048 Other nonmedicinal substance allergy status; Z79.899 Other long term (current) drug therapy
CPT/HCPCS: 36415; 71045; 80053; 83735; 83880; 84484; 85025; 85379; 85610; 85730; 93005; 99285; A9270; J3490

== ENCOUNTER 2023-05-09 00:22 | Emergency (ER) | payer MEDICAID ==
[2023-05-09 01:11] LABS: BASOPHILS ABSOLUTE AUTO 0.1 K/mm3 (0.0-0.2); BASOPHILS PERCENT AUTO 0.7 % (0.0-1.0); EOSINOPHILS ABSOLUTE AUTO 0.1 K/mm3 (0.0-0.4); HEMATOCRIT 39.2 % (42.0-52.0); HEMOGLOBIN 13.4 gm/dl (14.0-18.0); IMMATURE GRAN ABSOLUTE AUTO 0.02 K/mm3 (0.00-0.05); IMMATURE GRAN PERCENT AUTO 0.2 % (0.0-0.4); LYMPHOCYTES ABSOLUTE AUTO 1.8 K/mm3 (1.0-4.8); LYMPHOCYTES PERCENT AUTO 17.2 % (24.0-44.0); MEAN CORPUSCULAR HEMOGLOBIN 32.5 pg (28.0-32.0); MEAN CORPUSCULAR HGB CONC 34.2 g/dl (32.0-36.0); MEAN CORPUSCULAR VOLUME 95.1 fl (83.0-99.0); MEAN PLATELET VOLUME 8.6 fl (9.4-12.4); MONOCYTES ABSOLUTE AUTO 1.1 K/mm3 (0.0-0.8); MONOCYTES PERCENT AUTO 10.5 % (0.0-8.0); NEUTROPHILS ABSOLUTE AUTO 7.3 K/mm3 (1.8-7.7); NEUTROPHILS PERCENT AUTO 70.4 % (41.0-71.0); PLATELET COUNT,PLT 202 K/mm3 (150-400); RED BLOOD CELL COUNT 4.12 M/mm3 (4.52-5.90); WHITE BLOOD CELL COUNT,WBC 10.38 K/mm3 (3.9-11.3)
[2023-05-09 01:39] LABS: ALBUMIN 3.5 g/dl (3.4-5.0); ANION GAP 13.9 (5-15); BILIRUBIN TOTAL 0.6 mg/dL (0.2-1.0); BUN/CREATININE RATIO 18.9 (14-18); CALCIUM 9.3 mg/dL (8.5-10.1); CREATININE 0.9 mg/dL (0.7-1.3); EST CRCL DRUG DOSING (CG) 92.4 mL/min
[2023-05-09 01:40] LABS: POTASSIUM,K 3.9 mEq/L (3.5-5.1)
[2023-05-09 01:58] LABS: CORONAVIRUS COVID-19 NAA NEGATIVE (NEGATIVE); INFLUENZA A NAA NEGATIVE (NEGATIVE); RESPIRATORY SYNCYTIAL VIR NAA NEGATIVE (NEGATIVE)
[2023-05-09 02:11] LABS: APPEARANCE,URINE CLEAR (Clear); BILIRUBIN,URINE NEGATIVE (Negative); COLOR,URINE YELLOW (Yellow); GLUCOSE,URINE NEGATIVE (Negative); KETONES,URINE TRACE (Negative); LEUKOCYTE ESTERASE,URINE 1+ (Negative); NITRITE,URINE POSITIVE (Negative); OCCULT BLOOD,URINE NEGATIVE (Negative); PROTEIN,URINE NEGATIVE (Negative); UROBILINOGEN,URINE 0.2 (0.2-1.0)
[2023-05-09 02:19] LABS: BARBITURATE SCREEN,URINE NEGATIVE (CUTOFF=200); BENZODIAZEPINES SCREEN,URINE NEGATIVE (CUTOFF=150); BUPRENORPHINE SCREEN,URINE NEGATIVE (CUTOFF=10); METHADONE SCREEN, URINE NEGATIVE (CUT0FF=200); METHAMPHETAMINES SCREEN, URINE PRESUMPTIVE POSITIVE (CUTOFF=500); OXYCODONE SCREEN,URINE NEGATIVE (CUT0FF=100); PROPOXYPHENE SCREEN,URINE NEGATIVE (CUTOFF=300); THC SCREEN,URINE 20 NG/ML PRESUMPTIVE POSITIVE (CUTOFF=50)
[2023-05-09 02:21] LABS: AMPHETAMINES SCREEN, URINE PRESUMPTIVE POSITIVE (CUTOFF=500)
[2023-05-09 02:26] LABS: RBC,URINE 0-5 /hpf (0-5)
[2023-05-09 02:27] LABS: AMORPHOUS SEDIMENT,URINE FEW /hpf (NOT SEEN); BACTERIA,URINE MANY /hpf (FEW); EPITHELIAL CELLS,URINE 0-5 /hpf (0-5); MUCUS,URINE RARE /hpf (FEW)
[2023-05-09] MEDS ORDERED: Sulfamethoxazole/Trimethoprim 800-160 MG Tab PO ONE (02:31)
== END 2023-05-09 03:58 | disposition home or self-care (01) ==
LOC: JD.ED 00:22
DX: F23 Brief psychotic disorder (principal); F15.10 Other stimulant abuse, uncomplicated; J45.909 Unspecified asthma, uncomplicated; Z86.16 Personal history of COVID-19; Z88.0 Allergy status to penicillin; Z91.048 Other nonmedicinal substance allergy status; Z91.030 Bee allergy status; Z88.1 Allergy status to other antibiotic agents; Z88.8 Allergy status to other drugs, medicaments and biological substances; Z79.899 Other long term (current) drug therapy; Z20.822 Contact with and (suspected) exposure to COVID-19
CPT/HCPCS: 0241U; 36415; 80053; 80143; 80179; 80306; 80307; 81001; 85025; 99284; A9270; 99283